=== PATIENT | female | born 1965 | race American Indian/Alaskan Native ===

== ENCOUNTER 2017-05-11 07:18 | Day surgery (SDC) | payer OTHER ==
[2017-05-11 07:37] VITALS: BMI 28.8
[2017-05-11 07:48] VITALS: O2SAT 100
--- NOTE | 2017-05-11 08:33 | CP.SDSHP ---
Same Day Surgery H & P - History Proposed Procedure: EGD Pre-Op Diagnosis: SEE NOTES - Previous Medical/Surgical History Previous Surgical History: D&C - Allergies Allergies: Allergies No Known Allergies Allergy (Verified 02/20/12 12:33) - Physical Exam General Appearance: N Vital Signs: Vital Signs 05/11/17 07:38 Temperature 97.1 F L Pulse Rate 88 Respiratory 20 Rate Blood Pressure 127/90 O2 Sat by Pulse 100 Oximetry Mental Status: Alert & Oriented x3 Neuro: WNL Heart: WNL Lungs: WNL GI: Other - {Optional Preform as Required} Breast: WNL Abdomen: Other Rectal: Other Integument: WNL : WNL Ortho: WNL ENT: WNL - Impression Pt. Evaluated Today:Candidate for Anesthesia & Procedure: Yes - Date & Time Time: 08:33 Short Stay Discharge - Short Stay Discharge Admitting Diagnosis/Reason for Visit: DYSPEPSIA Disposition: HOME/ ROUTINE
[2017-05-11] MEDS ORDERED: Propofol 10 mg/ml Inj (20 ML) ONE (08:34)
[2017-05-11] MEDS ORDERED: Belladonna-Phenobarbital PO ONE (08:45)
[2017-05-11] MEDS ORDERED: Pantoprazole 40 mg EC Tab PO ONE (08:45)
[2017-05-11 08:57] VITALS: TEMP 97.9
[2017-05-11 09:31] VITALS: BP 107/61; PULSE 88; RESP 15
== END 2017-05-11 10:45 | disposition home or self-care (01) ==
LOC: C.ENDO 07:18
PROVIDERS: ATTEND Specialist
DX: K30 Functional dyspepsia (principal); K29.70 Gastritis, unspecified, without bleeding; K29.00 Acute gastritis without bleeding
CPT/HCPCS: 43239; 84703; 88305; J2001; J2704